=== PATIENT | male | born 1985 | race Caucasian/White ===

== ENCOUNTER 2016-12-18 02:27 | Emergency (ER) | payer MEDICAID ==
--- NOTE | 2016-12-18 03:02 | EDPHY ---
H & P Stated Complaint: M1 - Personal History Current Tetanus/Diphtheria Vaccine: Yes Current Tetanus Diphtheria and Acellular Pertussis (TDAP): Yes - Medical/Surgical History Hx Asthma: No Hx Chronic Respiratory Disease: No Hx Diabetes: No Hx Cardiac Disease: No Hx Renal Disease: No Hx Cirrhosis: No Hx Alcoholism: No Hx HIV/AIDS: No Hx Splenectomy or Spleen Trauma: No Other PMH: Fell ~50ft-Stomach surgery, right hip replacement, right wrist surgery, 9 surgeries on left leg - Social History Smoking Status: Never smoked Time Seen by Provider: 12/18/16 02:41 HPI/ROS: Chief Complaint: Suicidal thoughts, agitation HPI: 31-year-old male states he became agitated this evening after his left with their child. He states that police was then called to his house. He was angry. He struck the wall. He did make suicidal statements but now denies feeling suicidal. He has been having trouble sleeping but this is a longstanding problem for him. Denies a history of suicide attempts in the past. Is on chronic pain medication for injury sustained after a fall 2 years ago. Does admit that he drank some alcohol after his left this morning as well. Police were called and placed him on a mental health hold. ROS: 10 point Review of Systems is negative except as noted in the HPI. PMH: Multiple orthopedic abdominal surgeries secondary to a fall off of a jonnie 2 years ago. Social History: No smoking, occasional alcohol, no recreational drug use Family History: non-contributory Physical Exam: Gen: Awake, Alert, No Distress HEENT: Nose: no rhinorrhea Eyes: PERRLA, EOMI Mouth: Moist mucosa Neck: Supple, no JVD Chest: nontender, lungs clear to auscultation Heart: S1, S2 normal, no murmur Abd: Soft, non-tender, no guarding Back: no CVA tenderness, no midline tenderness Ext: no edema, non-tender, small abrasions to his knuckles of his 2nd through 4th digits on his right hand. No bony tenderness or deformities. Skin: no rash Neuro: CN II-XII intact, Sensation grossly intact, Strength 5/5 in bilateral upper and lower extremities (Juan Carlos Palomares) Constitutional: Initial Vital Signs Temperature (C) 36.5 C 12/18/16 02:33 Heart Rate 88 12/18/16 02:33 Respiratory Rate 16 12/18/16 02:33 Blood Pressure 119/89 H 12/18/16 02:33 O2 Sat (%) 99 12/18/16 02:33 O2 Delivery Mode Room Air Allergies/Adverse Reactions: milk Allergy (Verified 12/18/16 02:33) Home Medications: Medication Instructions Recorded Belsomra 12/18/16 Cyclobenzaprine 10 mg 12/18/16 Dexedrine 12/18/16 Gabapentin 12/18/16 Klonopin 2.5 mg 12/18/16 Melatonin 10 mg Tablet 12/18/16 OXcarbazepine 300 mg 12/18/16 Paxil 60 mg 12/18/16 Trileptal 300mg (*) 300 mg 12/18/16 Medical Decision Making ED Course/Re-evaluation: 31-year-old male expressing suicidal ideation after argument involving his . Pending mental health evaluation.. He is medically cleared. 0700 patient signed out to Dr. Conteh pending mental health evaluation. (Juan Carlos Palomares) Other Provider: I assumed care of the patient at 0700 pending psychiatric placement. The patient underwent psychiatric evaluation performed by [facility] throughout the morning. The patient does contract for safety. [facility] his contact the patient's who is comfortable with him being discharged home. They would like to follow up as an outpatient. The patient denies any active suicidal ideation. The patient does contract for safety. The M1 psychiatric hold was vacated at the recommendation of the on- call psychiatrist with [facility]. (Juan A Conteh) - Data Points Laboratory Results: Laboratory Results 12/18/16 03:15 12/18/16 03:15 12/18/16 12/18/16 12/18/16 03:15 03:15 02:50 WBC 8.46 10^3/uL 10^3/uL (3.80-9.50) RBC 5.17 10^6/uL 10^6/uL (4.40-6.38) Hgb 15.8 g/dL g/dL (13.7-17.5) Hct 43.3 % % (40.0-51.0) MCV 83.8 fL fL (81.5-99.8) MCH 30.6 pg pg (27.9-34.1) MCHC 36.5 g/dL g/dL (32.4-36.7) RDW 11.9 % % (11.5-15.2) Plt Count 187 10^3/uL 10^3/uL (150-400) MPV 9.3 fL fL (8.7-11.7) Neut % (Auto) 74.8 % H % (39.3-74.2) Lymph % (Auto) 18.1 % % (15.0-45.0) [place] % (Auto) 6.0 % % (4.5-13.0) Eos % (Auto) 0.0 % L % (0.6-7.6) Baso % (Auto) 0.5 % % (0.3-1.7) Nucleat RBC Rel Count 0.0 % % (0.0-0.2) Absolute Neuts (auto) 6.33 10^3/uL 10^3/uL (1.70-6.50) Absolute Lymphs (auto) 1.53 10^3/uL 10^3/uL (1.00-3.00) Absolute Monos (auto) 0.51 10^3/uL 10^3/uL (0.30-0.80) Absolute Eos (auto) 0.00 10^3/uL L 10^3/uL (0.03-0.40) Absolute Basos (auto) 0.04 10^3/uL 10^3/uL (0.02-0.10) Absolute Nucleated RBC 0.00 10^3/uL 10^3/uL (0-0.01) Immature Gran % 0.6 % % (0.0-1.1) Immature Gran # 0.05 10^3/uL 10^3/uL (0.00-0.10) Sodium 136 mEq/L mEq/L (134-144) Potassium 3.6 mEq/L mEq/L (3.5-5.2) Chloride 102 mEq/L mEq/L (97-110) Carbon Dioxide 21 mEq/l L mEq/l (22-31) Anion Gap 13 mEq/L mEq/L (8-16) BUN 8 mg/dL mg/dL (7-23) Creatinine 0.9 mg/dL mg/dL (0.7-1.3) Estimated GFR > 60 Glucose 77 mg/dL mg/dL (70-100) Calcium 9.7 mg/dL mg/dL (8.5-10.4) Urine Opiates Screen NON-NEGATIVE H (NEGATIVE) Urine Barbiturates NEGATIVE (NEGATIVE) Ur Phencyclidine Scrn NEGATIVE (NEGATIVE) Ur Amphetamine Screen NEGATIVE (NEGATIVE) U Benzodiazepines Scrn NON-NEGATIVE H (NEGATIVE) Urine Cocaine Screen NEGATIVE (NEGATIVE) U Marijuana (THC) Screen NON-NEGATIVE H (NEGATIVE) Ethyl Alcohol 14 mg/dL H mg/dL (0-10) Medications Given: Discontinued Medications Clonazepam (Klonopin) 1.5 mg PO EDNOW ONE Stop: 12/18/16 05:54 Last Admin: 12/18/16 06:15 Dose: 1.5 mg Cyclobenzaprine HCl (Flexeril) 10 mg PO EDNOW ONE Stop: 12/18/16 05:54 Last Admin: 12/18/16 06:16 Dose: 10 mg Gabapentin (Neurontin) 600 mg PO EDNOW ONE Stop: 12/18/16 05:55 Last Admin: 12/18/16 06:16 Dose: 600 mg Lorazepam (Ativan) 1 mg PO EDNOW ONE Stop: 12/18/16 03:58 Last Admin: 12/18/16 04:00 Dose: 1 mg Oxcarbazepine (Trileptal) 300 mg PO ONCE ONE Stop: 12/18/16 05:53 Last Admin: 12/18/16 06:16 Dose: 300 mg Paroxetine HCl (Paxil) 60 mg PO EDNOW ONE Stop: 12/18/16 05:51 Last Admin: 12/18/16 06:16 Dose: 60 mg Departure - Departure Disposition: Home, Routine, Self-Care Clinical Impression: Depression Condition: Good Instructions: Depression (ED) Additional Instructions: 1. Please follow-up with the mental health resources provided in the ED today. 2. [facility] does operate a 08/10 psychiatric crisis unit located at [address] The telephone number for the 24 hour crisis center is [phone]. 3. Please return to the ED if you are feeling suicidal, having thoughts of harming yourself/others or should you feel unsafe or have worsening symptoms. Referrals: [facility],. [Clinic] - As per Instructions
[2016-12-18 03:24] LABS: % IMMATURE GRANULYOCYTES 0.6 % (0.0-1.1); ABSOLUTE IMMATURE GRANULOCYTES 0.05 10^3/uL (0.00-0.10); ADD DIFF? NO; ADD MORPH? NO; ADD SCAN? NO; ATYPICAL LYMPHOCYTE FLAG 0 (0-99); FRAGMENT RBC FLAG 0 (0-99); HEMATOCRIT 43.3 % (40.0-51.0); HEMOGLOBIN 15.8 g/dL (13.7-17.5); LEFT SHIFT FLG 0 (0-99); LIPEMIA HEMOLYSIS FLAG 90 (0-99); MEAN CELL HEMOGLOBIN 30.6 pg (27.9-34.1); MEAN CELL HEMOGLOBIN CONCENTR. 36.5 g/dL (32.4-36.7); MEAN CELL VOLUME 83.8 fL (81.5-99.8); MEAN PLATELET VOLUME 9.3 fL (8.7-11.7); PLATELET CLUMPS FLAG 10 (0-99); PLATELET COUNT 187 10^3/uL (150-400); RED BLOOD CELL COUNT 5.17 10^6/uL (4.40-6.38); RED CELL DISTRIBUTION WIDTH 11.9 % (11.5-15.2)
[2016-12-18 03:36] LABS: ANION GAP 13 mEq/L (8-16); CALCIUM 9.7 mg/dL (8.5-10.4); CARBON DIOXIDE 21 mEq/l (22-31); CHLORIDE 102 mEq/L (97-110); CREATININE 0.9 mg/dL (0.7-1.3); ETHANOL SERUM 14 mg/dL (0-10); GLOMERULAR FILTRATION RATE > 60; GLUCOSE 77 mg/dL (70-100); POTASSIUM 3.6 mEq/L (3.5-5.2); SODIUM 136 mEq/L (134-144)
[2016-12-18] MEDS ORDERED: LORazepam 1 MG TAB ONE (03:56)
[2016-12-18] MEDS ORDERED: LORazepam 1 MG TAB PO ONE (03:57)
[2016-12-18] MEDS ORDERED: PARoxetine HCL 20 MG TAB PO ONE (05:50)
[2016-12-18] MEDS ORDERED: OXcarbazepine 300 MG TAB PO ONE (05:52)
[2016-12-18] MEDS ORDERED: CYCLOBENZAPRINE 10 MG TAB PO ONE (05:53)
[2016-12-18] MEDS ORDERED: clonazePAM 1 MG TAB PO ONE (05:53)
[2016-12-18] MEDS ORDERED: GABAPENTIN 100 MG CAP PO ONE (05:54)
[2016-12-18 08:51] VITALS: BP 115/62; PULSE 82; RESP 18; TEMP 98.4; O2SAT 96
== END 2016-12-18 12:31 | disposition home or self-care (01) ==
LOC: EDUNIT#
DX: F32.9 Major depressive disorder, single episode, unspecified (principal)
CPT/HCPCS: 80305; G0480

== ENCOUNTER → 2016-12-30 | Outpatient (CLI) | payer MEDICAID | LOC: FCPNEURO 21:00 | PROVIDERS: ATTEND Internal Medicine Sleep Medicine | DX: G47.00 Insomnia, unspecified (principal) ==